=== PATIENT | female | born 1970 | race Caucasian/White ===

== ENCOUNTER 2020-08-24 01:12 | Emergency (ER) | payer SELFPAY ==
[~2020-08-24] VITALS: Ht 167.6 cm; Wt 74.8 kg
--- NOTE | 2020-08-24 01:25 | NUR ---
pt bibra c/o n/v. Pt rec'd moderna vacine 08/21. pt aaox4 breathing evenly and unlabored. Pt skin warm, dry, and intact. pt attached to monitor and pox. Pt given blanket and call light within reach. Will continue to monitor.
--- NOTE | 2020-08-24 01:29 | NUR ---
blood obtained and sent to lab
--- NOTE | 2020-08-24 01:36 | NUR ---
taken to radiology
[2020-08-24] MEDS ORDERED: ONDANSETRON HCL/PF 4 MG/2 ML VIAL ONE ×2 (01:45→03:05)
[2020-08-24] MEDS ORDERED: DIAZEPAM 5 MG/ML 2 ML DISP.SYRIN ONE ×2 (01:46→03:06)
[2020-08-24 01:50] LABS: BASOPHILS # (AUTO) 0.1 /CMM (0.0-0.2); BASOPHILS % (AUTO) 1.2 % (0.0-2.0); EOSINOPHILS % (AUTO) 3.7 % (0.0-6.0); HEMATOCRIT 32 % (33-45); HEMOGLOBIN 10.7 g/dL (11.5-14.8); LYMPHOCYTES # (AUTO) 0.7 /CMM (0.8-4.8); LYMPHOCYTES % (AUTO) 16.3 % (20.0-44.0); MEAN CORPUSCULAR HGB CONC 34 g/dl (31.0-36.0); MEAN CORPUSCULAR VOLUME 88 fL (82-100); MONOCYTES # (AUTO) 0.6 /CMM (0.1-1.30); MONOCYTES % (AUTO) 13.7 % (2.0-12.0); NEUTROPHILS # (AUTO) 2.7 /CMM (1.8-8.9); NEUTROPHILS % (AUTO) 65.1 % (43.0-81.0); PLATELET COUNT (AUTO) 353 /CMM (150-450); RED BLOOD CELL COUNT(AUTO) 3.56 MIL/uL (4.0-5.2); WHITE BLOOD COUNT (AUTO) 4.2 K/uL (4.3-11.0)
[2020-08-24] MEDS ORDERED: DIAZEPAM 5 MG/ML 2 ML DISP.SYRIN IV ONE ×2 (02:00→03:30)
[2020-08-24] MEDS ORDERED: ONDANSETRON HCL/PF 4 MG/2 ML VIAL IVP ONE (02:00)
[2020-08-24] MEDS ORDERED: IV NS 0.9% 500 ML BAG IV ONE (02:00)
[2020-08-24 02:02] LABS: CALCIUM, SERUM 8.9 mg/dL (8.5-10.1); CARBON DIOXIDE 29 mmol/L (21-32); CHLORIDE 101 mmol/L (98-107); CREATININE 0.9 mg/dL (0.6-1.3); GLUCOSE 92 mg/dL (74-106); POTASSIUM 3.6 mmol/L (3.5-5.1); SODIUM SERUM 140 mmol/L (136-145); UREA NITROGEN, BLOOD 17 mg/dL (7-18)
[2020-08-24 02:07] LABS: ALANINE AMINOTRANSFERASE 18 U/L (12-78); ALBUMIN 3.4 g/dL (3.4-5.0); ALKALINE PHOSPHATASE 66 U/L (46-116); ASPARTATE AMINOTRANSFERASE 19 U/L (15-37); BILIRUBIN,DIRECT 0.1 mg/dL (0.0-0.2); BILIRUBIN,TOTAL 0.2 mg/dL (0.2-1.0); TOTAL PROTEIN, SERUM 7.5 g/dL (6.4-8.2)
[2020-08-24] MEDS ORDERED: ONDANSETRON HCL/PF 4 MG/2 ML VIAL IV ONE (03:30)
[2020-08-24] MEDS ORDERED: ONDA4TAB5 PO (04:06)
[2020-08-24] MEDS ORDERED: MECL-225 PO (04:06)
--- NOTE | 2020-08-24 04:13 | NUR ---
Patient discharged to home in stable condition. Written and verbal after care instructions given. Patient verbalizes understanding of instruction. IV removed. Catheter intact and site benign. Pressure and 4x4 applied to site. No bleeding noted. Pt ambulatory with a steady gait. Waiting for to pick her up
[2020-08-24 07:36] VITALS: BP 112/69
== END 2020-08-24 04:13 | disposition home or self-care (01) ==
LOC: ER 01:14
DX: R42 Dizziness and giddiness (principal); R11.2 Nausea with vomiting, unspecified; Z60.2 Problems related to living alone; Z79.899 Other long term (current) drug therapy
CPT/HCPCS: 36415; 70450; 80048; 80076; 84484; 85025; 93005; 96361; 96374; 96375; 96376; 99285; J2405 ×2; J3360 ×2; J7030